=== PATIENT | female | born 1995 ===

== ENCOUNTER → 2020-05-11 | Outpatient (CLI) | payer OTHER | END | disposition home or self-care (01) | LOC: NST 08:52 | PROVIDERS: ATTEND Obstetrics & Gynecology Maternal & Fetal Medicine | DX: Z34.83 Encounter for supervision of other normal pregnancy, third trimester (principal) ==

== ENCOUNTER 2020-06-07 09:06 | Inpatient (IN) | payer OTHER ==
[~2020-06-07] VITALS: Ht 160 cm; Wt 2.7 kg
[2020-06-24] MEDS ORDERED: PRENATAL TABLE1 EAC1 PO (18:02)
== END 2020-06-27 14:20 | disposition home or self-care (01) | DRG 788 ==
LOC: LDR 06-24 17:35 → O/R 06-24 17:35 → OB/GYN 06-25 15:51 → LDR 07-05 12:15
PROVIDERS: ADMIT Obstetrics & Gynecology Maternal & Fetal Medicine; ATTEND Obstetrics & Gynecology Maternal & Fetal Medicine
PROC: 4A1HXFZ Monitoring of Products of Conception, Cardiac Rhythm, External Approach (ICD-10-PCS; 2020-06-25)
PROC: 3E033VJ Introduction of Other Hormone into Peripheral Vein, Percutaneous Approach (ICD-10-PCS; 2020-06-25)
PROC: 10907ZC Drainage of Amniotic Fluid, Therapeutic from Products of Conception, Via Natural or Artificial Opening (ICD-10-PCS; 2020-06-25)
PROC: 10D00Z1 Extraction of Products of Conception, Low, Open Approach (ICD-10-PCS; principal; 2020-06-25 14:00)
DX: O62.1 Secondary uterine inertia (principal); Z3A.38 38 weeks gestation of pregnancy; Z37.0 Single live birth; O99.824 Streptococcus B carrier state complicating childbirth; R03.0 Elevated blood-pressure reading, without diagnosis of hypertension